=== PATIENT | male | born 1960 | race African-American/Black ===

== ENCOUNTER 2022-03-13 08:17 | Outpatient (RCR) | payer OTHER, SELFPAY ==
--- NOTE | ~2022-03-13 | XR_ITS ---
EXAMINATION: XR CHEST CLINICAL INFORMATION: HBO, prescreen COMPARISON: CT abdomen 11/08/2021 (RAYUS). TECHNIQUE: 2 views of the chest were obtained. FINDINGS: The lungs are clear. There is no hyperinflation, airspace consolidation, groundglass opacity, or fibrotic changes. The costophrenic sulci are clear. The heart is normal in size. The hilar and mediastinal contours are unremarkable. No significant bony abnormality. There is smooth benign ossification anterior spinal ligament lower thoracic spine. XR/XR chest 2V IMPRESSION: Unremarkable examination.
[2022-03-13 10:06] LABS: MANUAL DIFF FLAG NO
[2022-03-13 10:21] LABS: Basophils Percent Auto 0.4 % (0-2); Eosinophils Absolute Auto 0.2 X10*3/uL (0.0-0.4); Eosinophils Percent Auto 3.6 % (0-4); Hematocrit 35.5 % (42.0-52.0); Hemoglobin 10.8 g/dl (14.0-18.0); Imm Gran Abs Auto 0.02 X10*3/uL (0.00-0.03); Imm Gran Pct Auto 0.4 % (0.0-0.4); Lymphocytes Absolute Auto 1.1 X10*3/uL (1.2-4.9); Lymphocytes Percent Auto 20.9 % (20-40); Mean Corpuscular HGB Conc 30.4 g/dl (31.0-36.0); Mean Corpuscular Hemoglobin 26.5 pg (27.0-33.0); Mean Corpuscular Volume 87.2 fL (80.0-98.0); Monocytes Absolute Auto 0.5 X10*3/uL (0.1-1.2); Monocytes Percent Auto 10.1 % (2-11); Neutrophils Absolute Auto 3.5 x10*3/uL (2.0-8.3); Neutrophils Percent Auto 64.6 % (45-73); Platelet Count 212 X10*3/uL (160-400); Red Blood Count 4.07 X10*6/uL (4.60-5.80); Red Cell Distribution Width 15.3 % (11.0-16.0); White Blood Count 5.4 X10*3/uL (4.8-10.8)
[2022-03-13 10:55] LABS: Erythrocyte Sedimentation Rate 5 MM/HR (0-15)
[2022-03-13 10:58] LABS: Estimated Average Glucose 77 mg/dL; Hemoglobin A1C 65.6396 umol/L; Hemoglobin A1c % 4.3 %
[2022-03-13 11:43] LABS: Anion Gap 10 (12-20); Blood Urea Nitrogen 24 mg/dL (9-16); C Reactive Protein < 0.10 mg/dL (< or = 0.50); Carbon Dioxide 26 mmol/L (22-29); Chloride 110 mmol/L (96-108); Estimated Glomerular Filt Rate > 60; Glucose Random 99 mg/dL (60-115); Potassium 4.9 mmol/L (3.3-5.1); Sodium 141 mmol/L (135-145)
[2022-04-07 11:18] LABS: MANUAL DIFF FLAG NO
[2022-04-07 12:12] LABS: Basophils Percent Auto 0.6 % (0-2); Eosinophils Absolute Auto 0.2 X10*3/uL (0.0-0.4); Eosinophils Percent Auto 3.6 % (0-4); Hematocrit 37.6 % (42.0-52.0); Hemoglobin 11.7 g/dl (14.0-18.0); Imm Gran Abs Auto 0.07 X10*3/uL (0.00-0.03); Imm Gran Pct Auto 1.3 % (0.0-0.4); Lymphocytes Absolute Auto 1.1 X10*3/uL (1.2-4.9); Lymphocytes Percent Auto 21.3 % (20-40); Mean Corpuscular HGB Conc 31.1 g/dl (31.0-36.0); Mean Corpuscular Hemoglobin 25.7 pg (27.0-33.0); Mean Corpuscular Volume 82.5 fL (80.0-98.0); Monocytes Absolute Auto 0.5 X10*3/uL (0.1-1.2); Monocytes Percent Auto 9.2 % (2-11); Neutrophils Absolute Auto 3.4 x10*3/uL (2.0-8.3); Red Blood Count 4.56 X10*6/uL (4.60-5.80); Red Cell Distribution Width 15.6 % (11.0-16.0); White Blood Count 5.3 X10*3/uL (4.8-10.8)
[2022-04-07 12:34] LABS: Platelet Count 135 X10*3/uL (160-400)
[2022-04-07 12:36] LABS: Alanine Aminotransferase 38 U/L (0-40); Albumin Level 4.1 g/dL (3.5-5.0); Alkaline Phosphatase 83 U/L (39-117); Anion Gap 13 (12-20); Aspartate Amino Transferase 32 U/L (5-37); Bilirubin Total 0.5 mg/dL (0.0-1.0); Blood Urea Nitrogen 16 mg/dL (9-16); C Reactive Protein < 0.10 mg/dL (< or = 0.50); Calcium 9.2 mg/dL (8.4-10.2); Carbon Dioxide 25 mmol/L (22-29); Chloride 111 mmol/L (96-108); Estimated Glomerular Filt Rate > 60; Glucose Random 94 mg/dL (60-115); Potassium 4.8 mmol/L (3.3-5.1); Sodium 144 mmol/L (135-145); Total Protein 6.5 g/dL (6.5-8.0)
[2022-04-07 13:05] LABS: Erythrocyte Sedimentation Rate 4 MM/HR (0-15)
== END 2022-05-05 16:00 | disposition home or self-care (01) ==
LOC: HO.WCC 08:17
PROVIDERS: Physician Assistant; Visit Provider Surgery
DX: N30.41 Irradiation cystitis with hematuria (principal); C61 Malignant neoplasm of prostate; I10 Essential (primary) hypertension
CPT/HCPCS: 36415; 71046; 80048; 80053; 83036; 84134; 85025; 85652; 86140; 99183; 99212; 99214

== ENCOUNTER 2024-06-03 08:32 | Outpatient (AMB) | payer OTHER, SELFPAY ==
--- NOTE | 2024-06-03 08:35 | MHC.OFFVIS ---
Vital Signs 06/03/24 08:36 Height 5 ft 4 in Weight 192 lb 10.944 oz BMI 33.1 BP 142/58 H Blood Pressure Location Rt brachial Position Sitting Pulse 72 Pulse Source Pulse Oximeter Pulse Oximetry (%) 97 Oxygen Delivery Method Room Air Intake Visit Reasons: Epigastric pain Intake Note: NEW PATIENT for epigastric pain eval and possible colo screening. Chief Complaint; C/O epigastric pain without any additional sx per pt. Pt states that the pain is typically only present at night. No improvement with PPI to this point. No prior hx of similar issues. Last colo via [facility] x3 years ago. Technical Delivery Manager Required: No Accompanied by: Self / Same As Patient Allergies shellfish derived Allergy (Severe, Verified 06/03/24 08:36) Anaphylaxis HPI HPI Epigastric pain: Details: 63-year-old male with past medical history of hypertension, hyperlipidemia, BPH status post TURP, CAD status post cardiac stent at proximal and mid LAD is here today for initial consultation. Patient has been complaining of epigastric pain that sometimes radiates to his back. Patient was started on pantoprazole 20 mg twice a day by his PCP. Patient follows up at [place] [facility] with Dr. Briscoe, who recently left and he sees another visual stylist. Patient has an appointment with him in near future. Appointment with his PCP next week. Patient reports that his symptoms started about 2 weeks ago. Patient describes epigastric pain almost like a muscle twisting like pain that radiates to his back in the epigastric area. Patient reports that the pain happens only at night time when he is trying to lie down. Throughout the day he reports that he is able to tolerate food no epigastric pain or reflux after meals. His last meal is about 7 or 7:30pm and he goes to bed at 9 or 9:30. [facility] Medical History CAD (coronary artery disease) HLD (hyperlipidemia) HTN (hypertension) Surgical History (Updated 06/03/24 @ 08:40 by JOSELINE Maurer) History of colonoscopy History of prostatectomy History of heart artery stent S/P TURP Family History Father Heart disease Mother Heart disease Family/Other Heart disease Social History Alcohol intake: current Patient Tobacco Use Status: Never used Tobacco Use of substances other than those prescribed or required for medical reasons: No Review of Systems Const Denies weight gain and Denies weight loss ENT Reports no additional complaints, Denies dysphagia and Denies odynophagia Card Reports no additional complaints Resp Reports no additional complaints GI Reports abdominal pain (Epigastric), Denies belching, Denies melena, Reports bloating, Denies change in bowel habits, Denies dysphagia, Denies excessive flatus, Denies dyspepsia, Denies heartburn, Denies diarrhea, Denies loose stools, Denies nausea, Denies odynophagia and Denies vomiting Reports no additional complaints Musc Reports no additional complaints Neuro Reports no additional complaints Psych Reports no additional complaints Endo Reports no additional complaints Physical Exam Const General: healthy appearing and no acute distress Nutritional Appearance: obese Orientation/consciousness: patient oriented x3 Resp Effort & Inspection: normal respiratory effort, able to speak in complete sentences, no tracheal deviation and symmetric chest movement Auscultation: clear to auscultation bilaterally Cardio Rate: regular rate GI Inspection: Yes normal to inspection and No distended Palpation (GI): Soft to palpation, not firm, nontender and No hepatosplenomegaly present Auscultation: normal bowel sounds General: Yes no CVA tenderness Back/Spine/Pelvis Back: no CVA tenderness Skin General skin exam: elasticity normal, turgor normal and dry skin Neuro General: patient oriented x3 Psych Appearance: grossly normal Mental Status: mental status grossly normal Assessment & Plan Assessment & Plan (1) Epigastric pain: Code(s): R10.13 - Epigastric pain (2) Abdominal bloating: Code(s): R14.0 - Abdominal distension (gaseous) Plan Epigastric pain only at night time specially when patient lays down. Will rule out celiac and send patient for upper endoscopy, however in the meantime we will check CMP, lipase and H pylori. Patient denies having any epigastric pain, burning, dyspepsia, dysphagia or odynophagia related to meals. Will send him for upper GI with barium swallow to see if patient does have any reflux, gastritis, hernia. Message sent to surgical schedulers to book procedure for patient. Message sent to Angela RN to call his visual stylist for clearance. Patient will follow-up with us after the procedure and we will call with results of upper GI and blood work. He is agreeable to this plan and verbalizes understanding of instructions. He was given the opportunity to ask questions and all questions answered. Thank you for allowing me to participate in his care Orders: Orders Transglutaminase IgA Today R10.9 - Unspecified abdominal pain Comprehensive Met. Panel Today K21.9 - Gastro-esophageal reflux disease without esophagitis Lipase Today R10.9 - Unspecified abdominal pain H pylori Ag Stool Today K21.9 - Gastro-esophageal reflux disease without esophagitis FL upper GI w Ba Swallow Today K21.9 - Gastro-esophageal reflux disease without esophagitis Medications: New sucralfate 1 g PO BEDTIME 30 tabs 4RF R19.7 - Diarrhea, unspecified esomeprazole magnesium (Nexium) 40 mg PO DAILY 30 caps 2RF K21.9 - Gastro-esophageal reflux disease without esophagitis Coding Level of Care Code New Pt Level 3 (55633) Diagnoses Epigastric pain R10.13 Abdominal bloating R14.0 Time Spent (min) 40 Comment 30 minutes spent with patient and additional 10 minutes spent reviewing his records
[2024-06-03 08:36] VITALS: BP 142/58; PULSE 72; O2SAT 97; BMI 33.1
--- OUTSIDE RECORDS SUMMARY | 2024-06-03 08:59 | XMS_ITS ---
Author Organization [employer] Address [address] [facility] [address] [place] [address] Care Team Providers Care Veterinary Technician Name Role Phone FAYE ABKER Primary Care Provider Allergies Allergen (clinical drug ingredient) Drug/Non Drug Allergy documented on EMR Reaction Allergy Type Onset Date Status Shellfish (FN) Shellfish-derived Products anaphylaxis Drug Allergy Active REASON FOR VISIT 2 week f/u Medications Medication SIG (Take, Route, Frequency, Duration) Notes Start Date End Date Status Carvedilol 6.25 MG 1 tablet with food Orally Twice a day Active Atorvastatin Calcium 80 MG 1 tablet Orally Once a day Active Aspirin 81 MG 1 tablet Orally Once a day Active Brilinta 90 MG 1 tablet Orally Twice a day Not-Taking Lisinopril 20 MG 1 tablet Orally Once a day for 90 days Active guaiFENesin AC 100-10 MG/5ML 10 mL as needed Orally 3 times a day for 7 days 02/02/2023 Not-Taking Benzonatate 100 MG 1 capsule as needed Orally Three times a day for 7 days 01/30/2023 Not-Taking amLODIPine Besylate 5 MG 1 tablet Orally Once a day 2 TABLETS DAILY Active Social History Tobacco Use: Social History Observation Description Date Details (start date - stop date) Never Smoker NA - NA Tobacco Use/Smoking Question Answer Notes Are you a nonsmoker Vital Signs Temperature 96.7 degrees Fahrenheit 11/30/19 24 Oximetry 99 % 11/30/2023 Heart Rate 96 /min 11/30/2023 Blood pressure systolic 128 mm Hg 11/30/19 24 Blood pressure diastolic 72 mm Hg 024 Weight 194.9 lbs 11/30/2023 BMI 33.45 kg/m2 11/30/2023 Height 5'4'' in 11/30/2023 Encounters Encounter Location Date Provider Diagnosis [facility] [address] [facility] [address] [place] [address] 11/30/2023 FAYE BAKER Atherosclerotic hear t disease of [place] coronary artery without angina pectoris I25.10 ; Essential (primary) hypertension I10 ; Mixed hyperlipidemia E78.2 and Impaired fasting glucose R73.01 Assessments Encounter Date Diagnosis (ICD Code) Assessment Notes Treatment Notes Treatment Clinical Notes Section Notes 11/30/2023 Atherosclerotic heart disease of [place] coronary artery without angina pectoris (ICD-10 - I25.10) Mr Pickens is a 63-year-old gentleman with history of BPH s/p TURP, hyperlipidemia and hypertension, CAD s/p cardiac stent replacement at proximal and mid LAD; follows up with cardiology here for follow up on blood pressure. Plan is as follows: CAD. s/p cardiac stent placement at proximal and mid LAD. He is on right medications and he follows up with cardiology Dr. Briscoe at [facility] Hypertension. His blood pressure significantly improved since last visit. Continue Lisinopril 20 MG OD, Amlodipine 5 MG and Carvedilol 6.25 MG daily. Hyperlipidemia. Continue Atorvastatin 80 MG daily. Suggested dietary modifications. Morbid obesity. Advised dietary restrictions and regimental exercise. Goal is to lose 5-6 lbs a month. BPH. s/p TURP. Stable at this point. He follows up with urologist Dr Velarde Impaired fasting glucose. Fasting sugars 102. Dietary restrictions, regimental exercise and weight loss advised. check A1c. Screening blood work before next appointment. General health concerns discussed with patient. Scribe services used to formulate this note under HIPAA compliance and under [place] law mandated for scribe services. Patient aware of service. Verbal consent and written consent taken from the patient. Patient understands and verbalizes understanding of the scribes services and all questions answered regarding scribes services. Patient agrees to use of scribes services. 11/30/2023 Essential (primary) hypertension (ICD-10 - I10) Mr Pickens is a 63-year-old gentleman with history of BPH s/p TURP, hyperlipidemia and hypertension, CAD s/p cardiac stent replacement at proximal and mid LAD; follows up with cardiology here for follow up on blood pressure. Plan is as follows: CAD. s/p cardiac stent placement at proximal and mid LAD. He is on right medications and he follows up with cardiology Dr. Briscoe at [facility] Hypertension. His blood pressure significantly improved since last visit. Continue Lisinopril 20 MG OD, Amlodipine 5 MG and Carvedilol 6.25 MG daily. Hyperlipidemia. Continue Atorvastatin 80 MG daily. Suggested dietary modifications. Morbid obesity. Advised dietary restrictions and regimental exercise. Goal is to lose 5-6 lbs a month. BPH. s/p TURP. Stable at this point. He follows up with urologist Dr Velarde Impaired fasting glucose. Fasting sugars 102. Dietary restrictions, regimental exercise and weight loss advised. check A1c. Screening blood work before next appointment. General health concerns discussed with patient. Scribe services used to formulate this note under HIPAA compliance and under [place] law mandated for scribe services. Patient aware of service. Verbal consent and written consent taken from the patient. Patient understands and verbalizes understanding of the scribes services and all questions answered regarding scribes services. Patient agrees to use of scribes services. 11/30/2023 Mixed hyperlipidemia (ICD-10 - E78.2) Mr Pickens is a 63-year-old gentleman with history of BPH s/p TURP, hyperlipidemia and hypertension, CAD s/p cardiac stent replacement at proximal and mid LAD; follows up with cardiology here for follow up on blood pressure. Plan is as follows: CAD. s/p cardiac stent placement at proximal and mid LAD. He is on right medications and he follows up with cardiology Dr. Briscoe at [facility] Hypertension. His blood pressure significantly improved since last visit. Continue Lisinopril 20 MG OD, Amlodipine 5 MG and Carvedilol 6.25 MG daily. Hyperlipidemia. Continue Atorvastatin 80 MG daily. Suggested dietary modifications. Morbid obesity. Advised dietary restrictions and regimental exercise. Goal is to lose 5-6 lbs a month. BPH. s/p TURP. Stable at this point. He follows up with urologist Dr Velarde Impaired fasting glucose. Fasting sugars 102. Dietary restrictions, regimental exercise and weight loss advised. check A1c. Screening blood work before next appointment. General health concerns discussed with patient. Scribe services used to formulate this note under HIPAA compliance and under [place] law mandated for scribe services. Patient aware of service. Verbal consent and written consent taken from the patient. Patient understands and verbalizes understanding of the scribes services and all questions answered regarding scribes services. Patient agrees to use of scribes services. 11/30/2023 Impaired fasting glucose (ICD-10 - R73.01) Mr Pickens is a 63-year-old gentleman with history of BPH s/p TURP, hyperlipidemia and hypertension, CAD s/p cardiac stent replacement at proximal and mid LAD; follows up with cardiology here for follow up on blood pressure. Plan is as follows: CAD. s/p cardiac stent placement at proximal and mid LAD. He is on right medications and he follows up with cardiology Dr. Briscoe at [facility] Hypertension. His blood pressure significantly improved since last visit. Continue Lisinopril 20 MG OD, Amlodipine 5 MG and Carvedilol 6.25 MG daily. Hyperlipidemia. Continue Atorvastatin 80 MG daily. Suggested dietary modifications. Morbid obesity. Advised dietary restrictions and regimental exercise. Goal is to lose 5-6 lbs a month. BPH. s/p TURP. Stable at this point. He follows up with urologist Dr Velarde Impaired fasting glucose. Fasting sugars 102. Dietary restrictions, regimental exercise and weight loss advised. check A1c. Screening blood work before next appointment. General health concerns discussed with patient. Scribe services used to formulate this note under HIPAA compliance and under [place] law mandated for scribe services. Patient aware of service. Verbal consent and written consent taken from the patient. Patient understands and verbalizes understanding of the scribes services and all questions answered regarding scribes services. Patient agrees to use of scribes services. Plan Of Treatment Future Test Test Name Order Date Hemoglobin [id number] 11/30/2023 Albumin/Creatinine Ratio,Urine-[id number] Lipid Panel-[id number] 11/30/2023 Comp. Metabolic Panel ([id number] 2023 Next Appt Details Follow Up: 6 Months- ADRIENNELouanna son: Provider Name:Kami griffin, 06/08/2024 01:15:00 PM, [address] [facility] [address], [place], [address], Progress Notes * Jam PICKENSOB: 9 (63 yo M)Acc No.[id number]:11/30/2023 Progress Notes Patient:Dm CORTES Provider:?FAYE BAKER MD :1960???Age:63 Y???Sex:Male Mathew e:11/30/2023 Address: [address], [facility] Subjective: * Chief Complaints: * ???2 week f/u * HPI: ???Internal Medicine:? Mr Pickens is a 63-year-old gentleman with history of BPH s/p TURP, hyperlipidemia and hypertension, CAD s/p cardiac stent replacement at proximal and mid LAD; follows up with cardiology here for follow up on blood pressure. His blood pressure significantly improved since last time. He is physically active. His weight is stable. He sleeps well, appetite is good. No GI or symptoms. He does not appear anxious or depressed. He denies any other active issues or concerns. * ROS:?General/Constitutional:?Overall health?Good.?Change in appetite?denies.?Chills?denies.?Fever?denies.?Night sweats?denies.?Sleep disturbance?denies.?Weight gain?denies.?Weight loss?denies.?Neurologic:?Difficulty speaking?denies.?Dizziness?denies.?Gait abnormality?denies.?Headache?denies.?Loss of strength?denies.?Memory loss?denies.?Seizures?denies.?Tingling/Numbness?denies ?.?Ophthalmologic:?Blurred vision?denies.?Discharge?denies.?Dry eye?denies.?Red eye?denies.?ENT:?Change in Voice?Denies.?Cold Symptoms?Denies.?Cough?Denies.?Dizziness?Denies.?Nasal Congestion?Denies.?Otalgia?Denies.?postnasal drip?Denies.?Blocked ear?denies.?Nosebleed?denies.?Snoring?denies.?Cardiovascular:?Diaphoresis?Denies.?Pedal Edema?Denies.?PND (Paroxsymal nocturnal dyspnea)?Denies.?Chest pain?denies.?Difficulty laying flat?denies.?Dyspnea on exertion?denies.?Heart murmur?denies.?Orthopnea?denies.?Respiratory:?Snoring?denies.?Asthma?denies.?Cough?denies.?Shortness of breath with exertion?denies.?Sputum production?denies.?Wheezing?denies.?Gastrointestinal:?Change in bowel habits?denies.?Constipation?denies.?Decreased appetite?denies.?Diarrhea?denies.?Heartburn?denies.?Nausea?denies.?Vomiting?chance es.?Musculoskeletal:?tingling/numbness?Denies.?myalgias?Denies.?Joint Swelling?Denies.?extremeties?normal.?Arthritis?denies.?Back problems?denies.?Carpal tunnel?denies.?Joint stiffness?denies.?Muscle aches?denies.?Endocrine:?Bowel Changes?Denies.?Breast Discharge?Denies.?poor libido?Denies.?Cold intolerance?denies.?Excessive sweating?denies.?Excessive thirst?denies.?Frequent urination?denies.?Thyroid problems?denies.?Skin:?Bruising?Denies.?Eczema?denies.?Hair changes?denies.?Rash?denies.?Skin lesion(s)?denies.?Psychiatric:?Anxiety?denies.?Depressed mood?denies.?Difficulty sleeping?denies.?Nervous breakdown?denies.?Substance abuse?denies.?Urology:?abnormal menstrual bleeding?denies.?blood in urine?denies.?burning on urination?denies.?difficulty urinating?denies.?discharge?denies.?dysuria?denies.? * Medical History:? * Surgical History:?TURP cardi ac stent placement, proximal and mid LAD prostatectomy by Dr Velarde f/u radiation * Hospitalization/Major Diagno stic Procedure:?Denies Past Hospitalization * Family History:?Father: dece ased, diagnosed with Heart Disease.?Mother: , diagnosed with Diabetes.?Siblings: diagnosed with Heart Disease.? * Social History:?Tobacco Use:?Tobacco Use/Smoking?Are you a?nonsmoker ???Drugs/Alcohol:?Do you drink alcohol?: yes?.?Miscellaneous:?Exercise: occasionally. ?Marital status: . ?Occupation: Works full-time, factory work. * Medications:?TakingamLODIPin e Besylate 5 MG Tablet 1 tablet Orally Once a day , Notes to Pharmacist: 2 TABLETS DAILYCarvedilol 6.25 MG Tablet 1 tablet with food Orally Twice a day Aspirin 81 MG Tablet Delayed Release 1 tablet Orally Once a day Atorvastatin Calcium 80 MG Tablet 1 tablet Orally Once a day Lisinopril 20 MG Tablet 1 tablet Orally Once a day Taking amLODIPine Besylate 5 MG Tablet 1 tablet Orally Once a day , Notes to Pharmacist: 2 TABLETS DAILYTaking Carvedilol 6.25 MG Tablet 1 tablet with food Orally Twice a day Taking Aspirin 81 MG Tablet Delayed Release 1 tablet Orally Once a day Taking Atorvastatin Calcium 80 MG Tablet 1 tablet Orally Once a day Taking Lisinopril 20 MG Tablet 1 tablet Orally Once a day Not-TakingBrilinta 90 MG Tablet 1 tablet Orally Twice a day Benzonatate 100 MG Capsule 1 capsule as needed Orally Three times a day guaiFENesin AC 100-10 MG/5ML Syrup 10 mL as needed Orally 3 times a day Medication List reviewed and reconciled with the patientNot-Taking Brilinta 90 MG Tablet 1 tablet Orally Twice a day Not-Taking Benzonatate 100 MG Capsule 1 capsule as needed Orally Three times a day Not-Taking guaiFENesin AC 100-10 MG/5ML Syrup 10 mL as needed Orally 3 times a day Medication List reviewed and reconciled with the patient * Allergies:?Shellfish-derived Products: anaphylaxis - Allergyno[Allergies Verified] Objective: * Vitals:?Temp:96.7F, Oxygen s at %:99%, HR:96/min, BP:128/72mm Hg, Wt:194.9lbs, BMI:33.45Index, Ht: 5'4''. * ???Past Orders: ???Lab:COMPREHENSIVE METABOL IC PANEL (Order Date - 03/13/2023) (Collection Date & Time - 03/13/2023 09:48 AM) ? Value Reference Range ?ALBUMIN 4.2 (3.4-4.8) - GM/DL ?ALK PHOS 127 (40-129) - U/L ?BILIRUBIN,TOTAL 0.3 (0-1 .2) - MG/DL ?CALCIUM 9.0 (8.6-10.5) - MG/DL ?BICARBONATE 27 (22-29) - MMOL/L ?CHLORIDE 110 H (98-107) - MMOL/L ?EST GFR NON 95 - ML/MIN/1.73 M2 ?CREATININE 0.9 (0.7-1.2) - MG/DL ?ANION GAP 7 (4-17) - ?GLUCOSE 102 H (70-99) - MG /DL ?AST 25 (0-40) - U/L ?ALT 31 (0-41) - U/L ?POTASSIUM 5.0 (3.6-5.2) - MMOL/L ?SODIUM 144 (133-145) - M MOL/L ?TOTAL PROTEIN 6.8 (6.2-8 .2) - GM/DL ?BUN 15 (8-23) - MG/DL ?AG RATIO 1.6 - ???Lab:HEMOGLOBIN A1C WITH E ST GLUCOSE (Order Date - 03/13/2023) (Collection Date & Time - 03/13/2023 09:48 AM) ? Value Reference Range ?HEMOGLOBIN A1C 5.6 (4.0- 5.6) - % ?ESTIMATE AVERAGE GLUCOSE 114 - MG/DL ???Lab:LIPID PANEL (Order Da te - 03/13/2023) (Collection Date & Time - 03/13/2023 09:48 AM) ? Value Reference Range ?LDL CHOLESTEROL, CALCULATED 51 (0-130) - MG/DL ?CHOLESTEROL, TOTAL 109 ( <200) - MG/DL ?HDL CHOL 41 (>39) - MG/ DL ?NON HDL CHOLESTEROL (CALC) 68 (<160) - MG/DL ?TRIGLYCERIDE 84 (<150) - MG/DL ???Lab:MICROALBUMIN, URINE ( Order Date - 03/13/2023) (Collection Date & Time - 03/13/2023 09:48 AM) ? Value Reference Range ?MICRO-ALBUMIN 78.0 H (<20) - MG/L ?MALB/CREAT RATIO 53.8 H (0- 20) - MG/GM ?URINE CREAT FOR MICRO ALBUMIN 144.2 - MG/DL * Examination: ???General Examination: ?Psychiatry?Normal.?GENERAL APPEARANCE:?Well developed, well nourished, in no acute distress.?MUSCULOSKELETAL:?Normal.?HEAD:?Normocephalic, atraumatic.?EYES:?Pupils equal, round, reactive to light and accommodation, sclera non-icteric.?EARS:?Normal.?ORAL CAVITY:?Normal.?THROAT:?Clear.?OROPHARYNX?Normal.?SINUSES?Normal.?NECK/THYROID:?Neck supple, full range of motion, no cervical lymphadenopathy.?SKIN:?Warm and dry, no suspicious lesions.?HEART:?Normal.?LUNGS:?Normal.?BREASTS:?__.?ABDOMEN:?Soft, nontender, nondistended, bowel sounds present, normal.?EXTREMITIES:?Normal.?PERIPHERAL PULSES:?Normal.?NEUROLOGIC:?Nonfocal,? appropriate?motor strength normal upper and lower extremities, sensory exam intact.?FEMALE GENITOURINARY:?__.?MALE GENITOURINARY:?circumcised, no hernia, no hydrocele, no penile lesions or discharge, no testicular mass.?PODIATRIC:?Normal.?Binder Cutter? .? Assessment: * Assessment: 1.?Atherosclerotic heart dis ease of [place] coronary artery without angina pectoris - I25.10 (Primary)?2.?Essential (primary) hypertension - I10?3.?Mixed hyperlipidemia - E78.2?4.?Impaired fasting glucose - R73.01? Mr Pickens is a 63-year-old gentleman with history of BPH s/p TURP, hyperlipidemia and hypertension, CAD s/p cardiac stent replacement at proximal and mid LAD; follows up with cardiology here for follow up on blood pressure. Plan is as follows: CAD. s/p cardiac stent placement at proximal and mid LAD. He is on right medications and he follows up with cardiology Dr. Briscoe at [facility] Hypertension. His blood pressure significantly improved since last visit. Continue Lisinopril 20 MG OD, Amlodipine 5 MG and Carvedilol 6.25 MG daily. Hyperlipidemia. Continue Atorvastatin 80 MG daily. Suggested dietary modifications. Morbid obesity. Advised dietary restrictions and regimental exercise. Goal is to lose 5-6 lbs a month. BPH. s/p TURP. Stable at this point. He follows up with urologist Dr Velarde Impaired fasting glucose. Fasting sugars 102. Dietary restrictions, regimental exercise and weight loss advised. check A1c. Screening blood work before next appointment. General health concerns discussed with patient. Scribe services used to formulate this note under HIPAA compliance and under [place] law mandated for scribe services. Patient aware of service. Verbal consent and written consent taken from the patient. Patient understands and verbalizes understanding of the scribes services and all questions answered regarding scribes services. Patient agrees to use of scribes services. Plan: * Treatment: 2.?Impaired fasting glucose?LAB: Hemoglobin [id number] (Ordered for 11/30/2023) * Procedure Codes:?3078F DIAST BP < 80 MM [id number] SYST BP LT 130 MM HG * Follow Up:?6 Months- AW * Images: * Sign off status: Completed true * Provider:?FAYE BAKER MD Date:?11/29 Generated for Phillip renteria/Mark/Michelleitting on:?06/03/2024 08:59 AM EDT History and Physical Notes * HPI (History of Present Illness) Category Sub-Category Detail Notes Category Not es Internal Medicine Mr Pickens is a 63-year-old gentleman with history of BPH s/p TURP, hyperlipidemia and hypertension, CAD s/p cardiac stent replacement at proximal and mid LAD; follows up with cardiology here for follow up on blood pressure. His blood pressure significantly improved since last time. He is physically active. His weight is stable. He sleeps well, appetite is good. No GI or symptoms. He does not appear anxious or depressed. He denies any other active issues or concerns. Examination Category Sub-Category Detail Notes Category Not es General Examination GENERAL APPEARANCE: Well dev eloped, well nourished, in no acute distress HEAD: Normocephalic, atrau matic EYES: Pupils equal, round, reactive to light and accommodation, sclera non-icteric EARS: Normal THROAT: Clear NECK/THYROID: Neck supple, full ra nge of motion, no cervical lymphadenopathy HEART: Normal LUNGS: Normal ABDOMEN: Soft, nontender, non distended, bowel sounds present, normal NEUROLOGIC: Nonfocal, appropriat e motor strength normal upper and lower extremities, sensory exam intact SKIN: Warm and dry, no chinyere picious lesions EXTREMITIES: Normal PERIPHERAL PULSES: Normal BREASTS: __ MUSCULOSKELETAL: Normal MALE GENITOURINARY: circumcised, no turner ia, no hydrocele, no penile lesions or discharge, no testicular mass FEMALE GENITOURINARY: __ ORAL CAVITY: Normal PODIATRIC: Normal Psychiatry Normal OROPHARYNX Normal SINUSES Normal Binder Cutter
--- OUTSIDE RECORDS SUMMARY | 2024-06-03 08:59 | XMS_ITS ---
Author Organization [facility] Address [address] [place] [address] Care Team Providers Care Skein Winder Name Role Phone OLIVIA FAYE Primary Care Provider REASON FOR VISIT Lisinopril rx Medications Medication SIG (Take, Route, Fr equency, Duration) Notes Start Date End Date Status Lisinopril 20 MG 1 tablet Orally Once a day for 90 days Active Encounters Encounter Location Date Provider Diagnosis [address] [address] 11/17/2023 FAYE BAKER Plan Of Treatment Medication Medication Name Sig Start Date Stop Date Notes Lisinopril 20 MG 1 tablet Orally Once a day for 90 days Next Appt Details Provider Name:Kami grfifin, 06/08/2024 01:15:00 PM, [address] [place] [address], [place], [address], Progress Notes * Lewis PICKENSeDOB: (63 yo M)Acc No.[id number]:11/17/2023 Patient:?Lewis PICKENSe :1960???Age:63 Y???Sex:Male Address:[address] [place] [address] * Refills? Refill Lisinopril Tablet, 20 MG, Orally, 90, 1 tablet, Once a day, 90 days, Refills=3 * true * Date:? Generated for Phillip renteria/Mark/Tom on:?06/03/2024 08:59 AM EDT
--- OUTSIDE RECORDS SUMMARY | 2024-06-03 09:00 | XMS_ITS | Clinical Summary ---
Author Organization [employer] Address [address] [place] [address] Care Team Providers Care Youth Services Librarian Name Role Phone Sayra Pappas NP Primary Care Provider [phone] Panfilo Velarde MD Unavailable Allergies Active Allergy Reactions Criticality Noted Date Comments Shellfish Derived 03/04/2019 Medications ibuprofen (ADVIL) 200 mg tablet Take by mouth every 6 (six) hours if needed for mild pain Active acetaminophen (TYLENOL) 500 mg tablet Take 500 mg by mouth every 6 (six) hours if needed for mild pain Active amLODIPine (NORVASC) 5 mg tabletIndication s:Hypertension, unspecified type Take 1 tablet (5 mg total) by mouth 1 (one) time each day 90 tablet 3 08/05/2022 Active lisinopriL (PRINIVIL) 5 mg tabletIndication s:Hypertension, unspecified type Take 1 tablet (5 mg total) by mouth 1 (one) time each day 90 tablet 3 08/05/2022 Active rosuvastatin (CRESTOR) 5 mg tabletIndication s:Dyslipidemia Take 1 tablet (5 mg total) by mouth 1 (one) time each day 90 tablet 3 08/05/2022 Active Active Problems Problem Noted Date Diagnosed Date Disorder of bladder 02/18/2022 Overview (02/18/2022): Followed by urology: bladder detrusor instability, bladder hyperactivity, bladder outlet obstruction, bladder sphincter spasm, cystitis radiation- chronic; gross hematuria, hx of malignant bladder neoplasm, prostate cancer 02/18/2022: chronic radiation cystitis: referred to hyperbaric oxygen therapy; oxybutynin 5 mg tid; pyridium Gross hematuria 12/23/2021 Overview (03/19/2022): Followed by urology 12/20/2021: cytology, urine culture, plan cysto 01/01/2022: concern for UTI- started on bactrim x 5 days; TURBT scheduled for further evaluation of gross hematuria 01/09/2022: TURBT done 01/08/2022, results pending 02/06/2022: cyst/clot evac and fulguration on 02/[address] Velarde, whitfield removed, f/u 02/18/2022 03/13/2022: pursue hyperbaric oxygen therapy for radiation cystitis Arthritis of right knee 07/23/2021 Overview (07/23/2021): 07/18/2021 R knee xray: mild enthesopathy and mild osteoarthrosis BPH (benign prostatic hyperplasia) 07/05/2021 Dyslipidemia 07/05/2021 Proteinuria 12/26/2020 Overweight 12/26/2020 Hypertension 12/12/2020 Impaired fasting glucose 11/28/2020 Prostate cancer 01/02/2020 Overview (01/21/2022): Follow[facility] by [facility] Urology TURP: 04/17/2016, radiation therapy and course of ADT 10/24/2021: episode of gross hematuria- w/u urine C&S, cytology, CT urogram, cystoscopy- pt requesting to hold off on the cystoscopy 12/2021: TURBT pathology: fragments of papillary urothelial cell carcinoma, low grade, recommend 2nd look TURBT to confirm diagnosis of bladder cancer and remove as much as possible Onychomycosis of great toe 03/09/2019 Resolved Problems Problem Noted Date Diagnosed Date Resolved Date Foot pain, bilateral 11/28/2020 022 Sebaceous cyst 03/09/2019 07/05/2021 Seborrheic keratoses 03/09/2019 022 Sciatica of left side 03/09/20192019 Immunizations Name Administration Dates Next Due COVID-19 Pfizer SARS-CoV2 mR NA PF 30mcg/0.3mL Vaccine (Purple) 02/15/2021,07/20/2020,06/22/2020 Tdap 09/19/2016 Family History Medical History Relation Comments Asthma Brother Hypertension Brother Heart disease Father Heart disease Mother Cancer Other Hypertension Sister Relation Status Comments Brother Alive Father Mother Other Sister Alive Social History Tobacco Use Types Packs/Day Years Used Date Smoking Tobacco: Never Smokeless Tobacco: Never Tobacco Cessation:Counseling Given: Not Answered Alcohol Use Standard Drinks/Week Comments Yes 2 (1 standard drink = 0.6 oz pur e alcohol) AUDIT-C Answer Date Recorded Frequency of Alcohol Consumption Monthly or less 04/20/2019 Average Number of Drinks Not on file 020 Frequency of Binge Drinking Not on file 04/02 PHQ-2 Answer Date Recorded Depression Risk (PHQ2) Score 0 11/2022 Sex and Gender Information Value Date Recorded Sex Assigned at Not on file Legal Sex Male 8:15 AM MST Gender Identity Not on file Sexual Orientation Not on file Last Filed Vital Signs Vital Sign Reading Time Taken Comments Blood Pressure 140/80 07/09/2022 8:48 AM EDT Pulse 62 07/09/2022 7:56 AM EDT Temperature 36.3 ??C (97.3 ??F) 07/09/2022 7:56 AM ED T Respiratory Rate 16 04/20/2019 8:55 AM EST Oxygen Saturation 99% 07/09/2022 7:56 AM EDT Inhaled Oxygen Concentration - - Weight 85.5 kg (188 lb 9.6 oz) 07/09/2022 7:56 A M EDT Height 165.2 cm (5' 5.04 ) 07/05/2021 8:54 AM ED T Body Mass Index 31.35 07/05/2021 8:54 AM EDT Plan of Treatment Health Maintenance Due Date Last Done Comments CT Colonography 1958 Cologuard 1958 FOBT/FIT 1958 Sigmoidoscopy 1958 PHQ-9 Depression Screen 1970 SANDRA-7 Anxiety Screen 1976 Pneumococcal Vaccine: 50+ Ye ars (1 of 2 - PCV) 1977 Zoster Vaccines (1 of 2) 1977 Annual Preventive Exam 07/10/2023 3, 07/05/2021, 11/28/2020, Additional history exists COVID-19 Vaccine (4 - 2023-2 5 season) 2023 02/15/2021, 07/20/2020, 06/22/2020 Influenza Vaccine (#1) 2023 Colonoscopy 06/21/2026 06/21/2021 (Prev iously completed - report reviewed), 01/27/2017, 01/27/2017 Colorectal Cancer Screening 06/21/2026 DTaP,Tdap,and Td Vaccines (2 - Td or Tdap) 09/19/2026 09/19/2016 RSV Vaccine (SCDM) (1 - 1-do se 75+ series) 2033 Hepatitis C Screening Completed 01/17/2021 Procedures Procedure Name Priority Date/Time Associated Diagnosis Comments HEPATITIS PANEL, ACUTE Routine 01/17/2021 9:40 AM EST Elevated liver enzymes from Last 3 Months or Most Recently Relevant to Health Maintenance Results * Hepatitis panel, acute (01/17/2021 9:40 AM EST) Hep A Ab, IgM Negative Negative [facility] HBsAg Screen Negative Negative [facility] Hep B Core Ab, IgM Negative Negative [facility] Hep C Virus Ab <0.1 0.0 - 0.9 s/co ratio [facility] Comment: ?Negative: ? < 0.8 ? Indeterminate: 0.8 - 0.9 ?Positive: ? > 0.9 The CDC recommends that a positive HCV antibody result be followed up with a HCV Nucleic Acid Amplification test ([id number]). Blood (Blood, Venous) 01/17/2021 9:40 AM EST 01/17/2021 Comment:Blood, Venous Narrative [facility] - 01/18/2021 8:17 AM EST Performed at: ??01 - [facility] [address] ??[id number] Quantitative Developer: Becki Nagel MD, Phone: ??[phone] us Jessica Hamilton [employer] LAB BLOOD ORDERABLES Final Res ult [facility] from Last 3 Months or Most Recently Relevant to Health Maintenance Insurance [employer] Care Teams Youth Services Librarian Relationship Specialty Start Date End Date Sayra Pappas NP [address] [place] [id number] PCP - General Family Medicine 07/05/21 Panfilo Velarde MD [address] [address] Consulting Physician Urology 07/05/21
--- OUTSIDE RECORDS SUMMARY | 2024-06-03 09:00 | XMS_ITS | Patient Health Record ---
Author Organization [facility] Address [address] [facility] [address] [place] [address] Care Team Providers Care Automatic Head Sawyer Name Role Phone FAYE BAKER Primary Care Provider [phone] Allergies Allergen (clinical drug ingredient) Drug/Non Drug Allergy documented on EMR Reaction Allergy Type Onset Date Status Shellfish (FN) Shellfish-derived Products anaphylaxis Drug Allergy Active Reason For Referral Reason epigastric pain Pl ease evaluate and treat Diagnosis 1 Epigastric pain (R10 .13) Referral Organization [facility] Referring Provider First Name FAYE Referring Provider Last Name OLIVIA Referring Provider Speciality Internal M edicine Referred Provider Specialty Gastroentero logy General Notes Please call the [facility]doulaye ent to schedule the appointment. Referral Priority Urgent Medications Medication SIG (Take, Route, Frequency, Duration) Notes Start Date End Date Status Brilinta 90 MG 1 tablet Orally Twice a day Not-Taking Pantoprazole Sodium 20 MG 1 tablet Orally 2 times a day for 30 days 05/20/2024 Active Atorvastatin Calcium 80 MG TAKE 1 TABLET BY MOUTH EVERY DAY for 30 Active Carvedilol 6.25 MG TAKE 1 TABLET BY MOUTH TWO TIMES A DAY for 30 Active Lisinopril 20 MG 1 tablet Orally Once a day for 90 days Active guaiFENesin AC 100-10 MG/5ML 10 mL as needed Orally 3 times a day for 7 days 02/02/2023 Not-Taking Benzonatate 100 MG 1 capsule as needed Orally Three times a day for 7 days 01/30/2023 Not-Taking Aspirin 81 MG 1 tablet Orally Once a day Active amLODIPine Besylate 5 MG 1 tablet Orally Once a day 2 TABLETS DAILY Active Immunizations Vaccine Route Administration Date Status Comme nts COVID 19 Pfizer Unknown 06/22/2020 Administered COVID 19 Pfizer Unknown 07/20/2020 Administered COVID 19 Pfizer Unknown 02/15/2021 Administered Tdap Unknown 05/15/2008 Administered Tdap Unknown 09/19/2016 Administered Social History Tobacco Use: Social History Observation Description Date Details (start date - stop date) Never Smoker NA - NA Tobacco Use/Smoking Question Answer Notes Are you a nonsmoker Problems Problem Type SNOMED Code ICD Code Onset Dates Problem Status W/U Status Risk Notes Problem Morbid obesity (disorder) (553688050) Morbid (severe) obesity due to excess calories (E66.01) Active confirmed Problem Mixed hyperlipidemia (137709461) Mixed hyperlipidemia (E78.2) Active confirmed Problem Atherosclerotic heart disease of tangirnaq coronary artery without angina pectoris (645456225793027) Atherosclerotic heart disease of tangirnaq coronary artery without angina pectoris (I25.10) Active confirmed Problem History of malignant neoplasm of prostate (208873952) Personal history of malignant neoplasm of prostate (Z85.46) Active confirmed Problem Essential hypertension (97415828) Essential (primary) hypertension (I10) Active confirmed Problem Body mass index 30.00 to 34.99 (099089643322385) Body mass index [BMI] 33.0-33.9, adult (Z68.33) Active confirmed Vital Signs Heart Rate 76 /min 05/20/2024 Temperature 96.4 degrees Fahrenheit 05/20/2024 Blood pressure diastolic 78 mm Hg 05/20/2024 Oximetry 98 % 05/20/2024 Height 5'4'' in 05/20/2024 Blood pressure systolic 130 mm Hg 05/20/2024 Weight 202.4 lbs 05/20/2024 BMI 34.74 kg/m2 05/20/2024 Encounters Encounter Location Date Provider Diagnosis [address] [place] [address] 11/05/2023 MCKINNEYANISA BAKER [facility] [address] [facility] [address] [place] [address] 11/16/2023 FAYE BAKER Atherosclerotic hear t disease of tangirnaq coronary artery without angina pectoris I25.10 ; Essential (primary) hypertension I10 and Mixed hyperlipidemia E78.2 [facility] [address] [facility] [address] [place] [address] 11/30/2023 MCKINNEY GUStefany Atherosclerotic hear t disease of tangirnaq coronary artery without angina pectoris I25.10 ; Essential (primary) hypertension I10 ; Mixed hyperlipidemia E78.2 and Impaired fasting glucose R73.01 [facility] [address] [facility] [address] [place] [address] 05/20/2024 MCKINNEY GUL Epigastric pain R10. 13 ; Atherosclerotic heart disease of tangirnaq coronary artery without angina pectoris I25.10 ; Essential (primary) hypertension I10 ; Mixed hyperlipidemia E78.2 and Impaired fasting glucose R73.01 [facility] [address] [facility] [address] [place] [address] 11/17/2023 MCKINNEY OLIVIA Assessments Encounter Date Diagnosis (ICD Code) Assessment Notes Treatment Notes Treatment Clinical Notes Section Notes 11/16/2023 Atherosclerotic heart disease of tangirnaq coronary artery without angina pectoris (ICD-10 - I25.10) Mr Pickens is a 63-year-old gentleman with history of BPH s/p TURP, hyperlipidemia and hypertension, CAD s/p cardiac stent replacement at proximal and mid LAD; follows up with cardiology here for follow up. Plan is as follows: CAD. s/p cardiac stent placement at proximal and mid LAD. He is on right medications and he follows up with cardiology Dr. Briscoe at [facility] Hypertension. His blood pressure is running high in the office today. Cut back on sodium intake. Advised appropriate hydration, cardio exercises and weight loss. Increase Lisinopril to 20 MG OD. Continue Amlodipine 5 MG and Carvedilol 6.25 MG daily. Hyperlipidemia. Continue Atorvastatin 80 MG daily. Suggested dietary modifications. Impaired fasting glucose. Fasting sugars 102. Dietary restrictions, regimental exercise and weight loss advised. Morbid obesity. Advised dietary restrictions and regimental exercise. Goal is to lose 5-6 lbs a month. BPH. s/p TURP. Stable at this point. He follows up with urologist Dr Velarde Screening blood work before next appointment. General health concerns discussed with patient. Scribe services used to formulate this note under HIPAA compliance and under [place] law mandated for scribe services. Patient aware of service. Verbal consent and written consent taken from the patient. Patient understands and verbalizes understanding of the scribes services and all questions answered regarding scribes services. Patient agrees to use of scribes services. 11/30/2023 Atherosclerotic heart disease of tangirnaq coronary artery without angina pectoris (ICD-10 - [...] follows up with cardiology Dr. Briscoe at [facility] Hypertension. His blood pressure significantly improved since [...] this note under HIPAA compliance and under [place] law mandated for scribe services. Patient aware [...] follows up with cardiology Dr. Briscoe at [facility] Hypertension. His blood pressure significantly improved since [...] this note under HIPAA compliance and under [place] law mandated for scribe services. Patient aware of service. Verbal consent and written consent taken from the patient. Patient understands and verbalizes understanding of the scribes services and all questions answered regarding scribes services. Patient agrees to use of scribes services. 05/20/2024 Atherosclerotic heart disease of tangirnaq coronary artery without angina pectoris (ICD-10 - I25.10) Mr Pickens is a 63-year-old gentleman with history of BPH s/p TURP, hyperlipidemia and hypertension, CAD s/p cardiac stent replacement at proximal and mid LAD; follows up with cardiology here for epigastric pain Plan is as follows: Epigastric pain. Differential diagnosis is gastritis/esophag itis, GERD. Started on Protonix 20 mg 1 tablet twice a day and diet restriction discussed. Is also given referral to GI for upper endoscopy. CAD. s/p cardiac stent placement at proximal and mid LAD. He is on right medications and he follows up with cardiology Dr. Briscoe at [facility] Hypertension. His blood pressure significantly [...] exercise and weight loss advised. check A1c. General health concerns discussed with patient. 05/20/2024 Epigastric pain (ICD-10 - R10.13) Mr Pickens is a 63-year-old gentleman with history of BPH s/p TURP, hyperlipidemia and hypertension, CAD s/p cardiac stent replacement at proximal and mid LAD; follows up with cardiology here for epigastric pain Plan is as follows: Epigastric pain. Differential diagnosis is gastritis/esophag itis, GERD. Started on Protonix 20 mg 1 tablet twice a day and diet restriction discussed. Is also given referral to GI for upper endoscopy. CAD. s/p cardiac stent placement at proximal and mid LAD. He is on right medications and he follows up with cardiology Dr. Briscoe at [facility] Hypertension. His blood pressure significantly [...] exercise and weight loss advised. check A1c. General health concerns discussed with patient. 05/20/2024 Essential (primary) hypertension (ICD-10 - I10) Mr Pickens is a 63-year-old gentleman with history of BPH s/p TURP, hyperlipidemia and hypertension, CAD s/p cardiac stent replacement at proximal and mid LAD; follows up with cardiology here for epigastric pain Plan is as follows: Epigastric pain. Differential diagnosis is gastritis/esophag itis, GERD. Started on Protonix 20 mg 1 tablet twice a day and diet restriction discussed. Is also given referral to GI for upper endoscopy. CAD. s/p cardiac stent placement at proximal and mid LAD. He is on right medications and he follows up with cardiology Dr. Briscoe at [facility] Hypertension. His blood pressure significantly [...] exercise and weight loss advised. check A1c. General health concerns discussed with patient. 05/20/2024 Mixed hyperlipidemia (ICD-10 - E78.2) Mr Pickens is a 63-year-old gentleman with history of BPH s/p TURP, hyperlipidemia and hypertension, CAD s/p cardiac stent replacement at proximal and mid LAD; follows up with cardiology here for epigastric pain Plan is as follows: Epigastric pain. Differential diagnosis is gastritis/esophag itis, GERD. Started on Protonix 20 mg 1 tablet twice a day and diet restriction discussed. Is also given referral to GI for upper endoscopy. CAD. s/p cardiac stent placement at proximal and mid LAD. He is on right medications and he follows up with cardiology Dr. Briscoe at [facility] Hypertension. His blood pressure significantly [...] exercise and weight loss advised. check A1c. General health concerns discussed with patient. 11/16/2023 Essential (primary) hypertension (ICD-10 - I10) Mr Pickens is a 63-year-old gentleman with history of BPH s/p TURP, hyperlipidemia and hypertension, CAD s/p cardiac stent replacement at proximal and mid LAD; follows up with cardiology here for follow up. Plan is as follows: CAD. s/p cardiac stent placement at proximal and mid LAD. He is on right medications and he follows up with cardiology Dr. Briscoe at [facility] Hypertension. His blood pressure is running high in the office today. Cut back on sodium intake. Advised appropriate hydration, cardio exercises and weight loss. Increase Lisinopril to 20 MG OD. Continue Amlodipine 5 MG and Carvedilol 6.25 MG daily. Hyperlipidemia. Continue Atorvastatin 80 MG daily. Suggested dietary modifications. Impaired fasting glucose. Fasting sugars 102. Dietary restrictions, regimental exercise and weight loss advised. Morbid obesity. Advised dietary restrictions and regimental exercise. Goal is to lose 5-6 lbs a month. BPH. s/p TURP. Stable at this point. He follows up with urologist Dr Velarde Screening blood work before next appointment. General health concerns discussed with patient. Scribe services used to formulate this note under HIPAA compliance and under [place] law mandated for scribe services. Patient aware [...] follows up with cardiology Dr. Briscoe at [facility] Hypertension. His blood pressure significantly [...] this note under HIPAA compliance and under [place] law mandated for scribe services. Patient aware of service. Verbal consent and written consent taken from the patient. Patient understands and verbalizes understanding of the scribes services and all questions answered regarding scribes services. Patient agrees to use of scribes services. 11/16/2023 Mixed hyperlipidemia (ICD-10 - E78.2) Mr Pickens is a 63-year-old gentleman with history of BPH s/p TURP, hyperlipidemia and hypertension, CAD s/p cardiac stent replacement at proximal and mid LAD; follows up with cardiology here for follow up. Plan is as follows: CAD. s/p cardiac stent placement at proximal and mid LAD. He is on right medications and he follows up with cardiology Dr. Briscoe at [facility] Hypertension. His blood pressure is running high in the office today. Cut back on sodium intake. Advised appropriate hydration, cardio exercises and weight loss. Increase Lisinopril to 20 MG OD. Continue Amlodipine 5 MG and Carvedilol 6.25 MG daily. Hyperlipidemia. Continue Atorvastatin 80 MG daily. Suggested dietary modifications. Impaired fasting glucose. Fasting sugars 102. Dietary restrictions, regimental exercise and weight loss advised. Morbid obesity. Advised dietary restrictions and regimental exercise. Goal is to lose 5-6 lbs a month. BPH. s/p TURP. Stable at this point. He follows up with urologist Dr Velarde Screening blood work before next appointment. General health concerns discussed with patient. Scribe services used to formulate this note under HIPAA compliance and under [place] law mandated for scribe services. Patient aware [...] follows up with cardiology Dr. Briscoe at [facility] Hypertension. His blood pressure significantly [...] this note under HIPAA compliance and under [place] law mandated for scribe services. Patient aware of service. Verbal consent and written consent taken from the patient. Patient understands and verbalizes understanding of the scribes services and all questions answered regarding scribes services. Patient agrees to use of scribes services. 05/20/2024 Impaired fasting glucose (ICD-10 - R73.01) Mr Pickens is a 63-year-old gentleman with history of BPH s/p TURP, hyperlipidemia and hypertension, CAD s/p cardiac stent replacement at proximal and mid LAD; follows up with cardiology here for epigastric pain Plan is as follows: Epigastric pain. Differential diagnosis is gastritis/esophag itis, GERD. Started on Protonix 20 mg 1 tablet twice a day and diet restriction discussed. Is also given referral to GI for upper endoscopy. CAD. s/p cardiac stent placement at proximal and mid LAD. He is on right medications and he follows up with cardiology Dr. Briscoe at [facility] Hypertension. His blood pressure significantly [...] exercise and weight loss advised. check A1c. General health concerns discussed with patient. Plan Of Treatment Future Test Test Name Order Date COMPREHENSIVE METABOLIC PANEL 01/30/2023 HEMOGLOBIN A1C WITH EST GLUCOSE 01/31/20 23 LIPID PANEL 01/30/2023 MICROALBUMIN, URINE 01/30/2023 Albumin/Creatinine Ratio,[id number] Lipid [id number] 11/16/2023 Comp. Metabolic Panel [id number] 2023 Hemoglobin [id number] 11/30/2023 Albumin/Creatinine Ratio,Urine-[id number] Lipid Panel-[id number] 11/30/2023 Comp. Metabolic Panel [id number] 2023 Next Appt Details Provider Name:Kami griffin, 06/08/2024 01:15:00 PM, [address] [place] [address], [place], [address], Insurance Providers Payer Name Payer Address Payer Phone Subscriber Number Group Number Insured Name Patient Relationship to Insured Coverage Start Date Coverage End Date [employer]ox[place] [address] [place] [phone] [id number] Dm Pickens Self - patient is the insured 1 Medical (General) History Medical History History ICD Code hypertension hyperlipidemia CAD s/p cardiac stent replac ement at proximal and mid LAD, follows up with Cardiology Surgical History Surgery Date(Month/Year) TURP cardiac stent placement, proximal and mi d LAD prostatectomy by Dr Velarde f/u radiation
--- OUTSIDE RECORDS SUMMARY | 2024-06-03 09:00 | XMS_ITS ---
Author Organization [facility] Address [address] [place] [address] Care Team Providers Care Reading Intervention Teacher Name Role Phone FAYE BAKER Primary Care Provider Allergies Allergen (clinical drug ingredient) Drug/Non Drug Allergy documented on EMR Reaction Allergy Type Onset Date Status Shellfish (FN) Shellfish-derived Products anaphylaxis Drug Allergy Active Reason For Referral Reason epigastric pain Pl ease evaluate and treat Diagnosis 1 Epigastric pain (R10 .13) Referral Organization [facility] Referring Provider First Name FAYE Referring Provider Last Name OLIVIA Referring Provider Speciality Internal M edicine Referred Provider Specialty Gastroentero logy General Notes Please call the [facility] ent to schedule the appointment. Referral Priority Urgent REASON FOR VISIT back spasms Medications Medication SIG (Take, Route, Frequency, Duration) Notes Start Date End Date Status Brilinta 90 MG 1 tablet Orally Twice a day Not-Taking Pantoprazole Sodium 20 MG 1 tablet Orally 2 times a day for 30 days 05/20/2024 Active Atorvastatin Calcium 80 MG TAKE 1 TABLET BY MOUTH EVERY DAY for 30 Active guaiFENesin AC 100-10 MG/5ML 10 mL as needed Orally 3 times a day for 7 days 02/02/2023 Not-Taking Benzonatate 100 MG 1 capsule as needed Orally Three times a day for 7 days 01/30/2023 Not-Taking Carvedilol 6.25 MG TAKE 1 TABLET BY MOUTH TWO TIMES A DAY for 30 Active Lisinopril 20 MG 1 tablet Orally Once a day for 90 days Active Aspirin 81 MG 1 tablet Orally Once a day Active amLODIPine Besylate 5 MG 1 tablet Orally Once a day 2 TABLETS DAILY Active Vital Signs Temperature 96.4 degrees Fahrenheit 05/21/19 25 Oximetry 98 % 05/20/2024 Heart Rate 76 /min 05/20/2024 Blood pressure systolic 130 mm Hg 05/21/19 25 Blood pressure diastolic 78 mm Hg 025 Weight 202.4 lbs 05/20/2024 BMI 34.74 kg/m2 05/20/2024 Height 5'4'' in 05/20/2024 Encounters Encounter Location Date Provider Diagnosis [facility] [address] [place] [address] 05/20/2024 MCKINNEY GUL Epigastric pain R10. 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 Briscoe at [facility]. His blood pressure significantly improved [...] General health concerns discussed with patient. 05/20/2024 Atherosclerotic heart disease of north[place] coronary artery without angina pectoris (ICD-10 - [...] follows up with cardiology Dr. Briscoe at [facility] Hypert[facility]. His blood pressure significantly improved since [...] follows up with cardiology Dr. Briscoe at [facility] Hypertension. His blood pressure significantly improved since [...] follows up with cardiology Dr. Briscoe at [facility]. His blood pressure significantly improved [...] General health concerns discussed with patient. 05/20/2024 Impaired fasting glucose (ICD-10 - R73.01) [...] follows up with cardiology Dr. Briscoe at [facility]. His blood pressure significantly improved [...] concerns discussed with patient. Plan Of Treatment Medication Medication Name Sig Start Date Stop Date Notes Pantoprazole Sodium 20 MG 1 tablet Orall y 2 times a day for 30 days 05/20/2024 Referrals Referral Date Details 05/20/2024 05/20/2024, epigastr ic pain Please evaluate and treat Next Appt Details Follow Up: next appt, Reason : Provider Name:Kami griffin, 06/08/2024 01:15:00 PM, [address] [place] [address], [phone], Progress Notes * Lewis PICKENSeDOB: (63 yo M)Acc No.[id number]:05/20/2024 Patient:?Dm PICKENS Provider:?FAYE BAKER MD :1960???Age:63 Y???Sex:Male Mathew e:05/20/2024 Address: [address], [id number] Subjective: * Chief Complaints: * ???Back spasms * HPI: ???Internal Medicine:?Mr Pickens is a 63-year-old gentleman with history of BPH s/p TURP, hyperlipidemia and hypertension, CAD s/p cardiac stent replacement at proximal and mid LAD; follows up with cardiology here for epigastric pain which radiates to the back.? Couple days ago it was intense pain and he had back spasm.? He is not on NSAIDs.? He has one cup of coffee which is 2 times a week.? He denies melena or hematochezia.,? No nausea or vomiting.? His weight is stable. * ROS:?General/Constitutional:?Overall health?Good.?Change in appetite?denies.?Chills?denies.?Fever?denies.?Night sweats?denies.?Sleep disturbance?denies.?Weight gain?denies.?Weight loss?denies.?Neurologic:?Difficulty speaking?denies.?Dizziness?denies.?Gait abnormality?denies.?Headache?denies.?Loss of strength?denies.?Memory loss?denies.?Seizures?denies.?Tingling/Numbness?denies .?Ophthalmologic:?Blurred vision?denies.?Discharge?denies.?Dry eye?denies.?Red eye?denies.?ENT:?Change in Voice?Denies.?Cold Symptoms?Denies.?Cough?Denies.?Dizziness?Denies.?Nasal Congestion?Denies.?Otalgia?Denies.?postnasal drip?Denies.?Blocked ear?denies.?Nosebleed?denies.?Snoring?denies.?Cardiovascular:?Diaphoresis?Denies.?Pedal Edema?Denies.?PND (Paroxsymal nocturnal dyspnea)?Denies.?Chest pain?denies.?Difficulty laying flat?denies.?Dyspnea on exertion?denies.?Heart murmur?denies.?Orthopnea?denies.?Respiratory:?Snoring?denies.?Asthma?denies.?Cough?denies.?Shortness of breath with exertion?denies.?Sputum production?denies.?Wheezing?denies.?Gastrointestinal:?Abdominal pain?epigastric.?Change in bowel habits?denies.?Constipation?denies.?Decreased appetite?denies.?Diarrhea?denies.?Heartburn?denies.?Nausea?denies.?Vomiting?chance es.?Musculoskeletal:?tingling/numbness?Denies.?myalgias?Denies.?Joint Swelling?Denies.?extremeties?normal.?Arthritis?denies.?Back problems?denies.?Carpal tunnel?denies.?Joint stiffness?denies.?Muscle aches?denies.?Endocrine:?Bowel Changes?Denies.?Breast Discharge?Denies.?poor libido?Denies.?Cold intolerance?denies.?Excessive sweating?denies.?Excessive thirst?denies.?Frequent urination?denies.?Thyroid problems?denies.?Skin:?Bruising?Denies.?Eczema?denies.?Hair changes?denies.?Rash?denies.?Skin lesion(s)?denies.?Psychiatric:?Anxiety?denies.?Depressed mood?denies.?Difficulty sleeping?denies.?Nervous breakdown?denies.?Substance abuse?denies.?Urology:?abnormal menstrual bleeding?denies.?blood in urine?denies.?burning on urination?denies.?difficulty urinating?denies.?discharge?denies.?dysuria?denies.? * Medical History:? * Medications:?TakingamLODIPin e Besylate 5 MG Tablet 1 tablet Orally Once a day , Notes to Pharmacist: 2 TABLETS DAILYAspirin 81 MG Tablet Delayed Release 1 tablet Orally Once a day Lisinopril 20 MG Tablet 1 tablet Orally Once a day Carvedilol 6.25 MG Tablet TAKE 1 TABLET BY MOUTH TWO TIMES A DAY Atorvastatin Calcium 80 MG Tablet TAKE 1 TABLET BY MOUTH EVERY DAY Taking amLODIPine Besylate 5 MG Tablet 1 tablet Orally Once a day , Notes to Pharmacist: 2 TABLETS DAILYTaking Aspirin 81 MG Tablet Delayed Release 1 tablet Orally Once a day Taking Lisinopril 20 MG Tablet 1 tablet Orally Once a day Taking Carvedilol 6.25 MG Tablet TAKE 1 TABLET BY MOUTH TWO TIMES A DAY Taking Atorvastatin Calcium 80 MG Tablet TAKE 1 TABLET BY MOUTH EVERY DAY Not-TakingBrilinta 90 MG Tablet 1 tablet Orally [...] Products: anaphylaxis - Allergyno[Allergies Verified] Objective: * Vitals:?Temp:96.4F, Oxygen s at %:98%, HR:76/min, BP:130/78mm Hg, Wt:202.4lbs, BMI:34.74Index, Ht: 5'4''. * Examination: ???General Examination: ?Psychiatry?Normal.?GENERAL APPEARANCE:?Well developed, well nourished, in no acute distress.?MUSCULOSKELETAL:?Normal.?HEAD:?Normocephalic, atraumatic.?EYES:?Pupils equal, round, reactive to light and accommodation, sclera non-icteric.?EARS:?Normal.?ORAL CAVITY:?Normal.?THROAT:?Clear.?OROPHARYNX?Normal.?SINUSES?Normal.?NECK/THYROID:?Neck supple, full range of motion, no cervical lymphadenopathy.?SKIN:?Warm and dry, no suspicious lesions.?HEART:?S1, S2 normal regular rate and rhythm no murmurs, rubs, gallops .?LUNGS:?clear anteriorly and posteriorly good air movement no wheezes, rales, rhonchi .?BREASTS:?__.?ABDOMEN:?Soft, nontender, nondistended, bowel sounds present,pain on palpation in the epigastric area, Higgins sign negative.?EXTREMITIES:?Normal.?PERIPHERAL PULSES:?Normal.?NEUROLOGIC:?Nonfocal,? appropriate?motor strength normal upper and lower extremities, sensory exam intact.?FEMALE GENITOURINARY:?__.?MALE GENITOURINARY:?circumcised, no hernia, no hydrocele, no penile lesions or discharge, no testicular mass.?PODIATRIC:?Normal.?Chemistry Quality Control Analyst? .? Assessment: * Assessment: 1.?Atherosclerotic heart dis ease of [place] coronary artery without angina pectoris - I25.10 (Primary)???2.?Epigastric pain - R10.13 (Primary)???3.?Essential (primary) hypertension - I10???4.?Mixed hyperlipidemia - E78.2?? 5.?Impaired fasting glucose - R73.01??? Mr Pickens is a 63-year-old gentleman with history of BPH s/p TURP, hyperlipidemia and hypertension, CAD s/p cardiac stent replacement at proximal and mid LAD; follows up with cardiology here for epigastric pain Plan is as follows: Epigastric pain.? Differential diagnosis is gastritis/esophagitis, GERD.? Started on Protonix 20 mg 1 tablet twice a day and diet restriction discussed.? Is also given referral to GI for upper endoscopy. CAD. s/p cardiac stent placement at proximal and mid LAD. He is on right medications and he follows up with cardiology Dr. Briscoe at [facility]. His blood pressure significantly improved [...] A1c. General health concerns discussed with patient. Plan: * Treatment: 2.?Others? Referral To:Gastroenterology ?Reason:epigastric pain * Procedure Codes:?3078F DIAST BP < 80 MM [id number] SYST BP GE 130 - 139MM HG * Follow Up:?next appt * Images: * Sign off status: Completed true * Provider:KALPANA BAKER MD Date:?05/20 Generated for Printi ng/Christianneg/eTransmitting on:?06/03/2024 08:59 AM EDT History and Physical Notes * HPI (History of Present Illness) Category Sub-Category Detail Notes Category Not es Internal Medicine Mr Pickens is a 63-year-old gentleman with history of BPH s/p TURP, hyperlipidemia and hypertension, CAD s/p cardiac stent replacement at proximal and mid LAD; follows up with cardiology here for epigastric pain which radiates to the back. Couple days ago it was intense pain and he had back spasm. He is not on NSAIDs. He has one cup of coffee which is 2 times a week. He denies melena or hematochezia., No nausea or vomiting. His weight is stable. Examination Category Sub-Category Detail Notes Category Not es General Examination GENERAL APPEARANCE: Well dev eloped, well nourished, in no acute distress HEAD: Normocephalic, atrau matic EYES: Pupils equal, round, reactive to light and accommodation, sclera non-icteric EARS: Normal THROAT: Clear NECK/THYROID: Neck supple, full ra nge of motion, no cervical lymphadenopathy HEART: S1, S2 normal regula r rate and rhythm no murmurs, rubs, gallops LUNGS: clear anteriorly and posteriorly good air movement no wheezes, rales, rhonchi ABDOMEN: Soft, nontender, non distended, bowel sounds present, pain on palpation in the epigastric area, Higgins sign negative NEUROLOGIC: Nonfocal, appropriat e motor strength normal upper and lower extremities, sensory exam intact SKIN: Warm and dry, no chinyere picious lesions EXTREMITIES: Normal PERIPHERAL PULSES: Normal BREASTS: __ MUSCULOSKELETAL: Normal MALE GENITOURINARY: circumcised, no turner ia, no hydrocele, no penile lesions or discharge, no testicular mass FEMALE GENITOURINARY: __ ORAL CAVITY: Normal PODIATRIC: Normal Psychiatry Normal OROPHARYNX Normal SINUSES Normal Chemistry Quality Control Analyst Consultation Request Notes Referral Date Referring Provider Referred Provider Not es 05/20/2024 FAYE BAKER , epigastric byron n Please evaluate and treat
--- OUTSIDE RECORDS SUMMARY | 2024-06-03 09:00 | XMS_ITS | Encounter Summary ---
Author Organization [employer] Address [address] [place] [address] Care Team Providers Care Paving Machine Operator Name Role Phone Sayra Pappas LEGAL CONSULTANT Primary Care Provider [phone]- [phone] Panfilo Velarde MD Unavailable Reason for Visit * Reason Comments Med Refill Encounter Details Date Type Department Care Team (Late st Contact Info) Description 01/31/2022 Refill [facility] [address] [place] [address] Sayra Pappas NP [address] [place] [id number] Dyslipidemia Social History Tobacco Use Types Packs/Day Years Used Date Smoking Tobacco: Never Smokeless Tobacco: Never Alcohol Use Standard Drinks/Week Comments Yes 2 (1 standard drink = 0.6 oz pur e alcohol) AUDIT-C Answer Date Recorded Frequency of Alcohol Consumption Monthly or less 04/20/2019 Average Number of Drinks Not on file 020 Frequency of Binge Drinking Not on file 04/02 PHQ-2 Answer Date Recorded Depression Risk (PHQ2) Score 0 07/2021 Sex and Gender Information Value Date Recorded Sex Assigned at Not on file Legal Sex Male 8:15 AM [facility] Gender Identity Not on file Sexual Orientation Not on file documented as of this encounter Plan of Treatment Not on file documented as of this encounter Visit Diagnoses Diagnosis Dyslipidemia Other and unspecified hyperlipidemia documented in this encounter Care Teams Paving Machine Operator Relationship Specialty Start Date End Date Sayra Pappas NP [address] [place] [id number] PCP - General Family Medicine 07/05/21 Panfilo Velarde MD [address] [facility] Sh[facility] [address] [place] [address] Consulting Physician Urology 07/05/21 documented as of this encounter
== END 2024-06-03 09:13 | disposition home or self-care (01) ==
LOC: HO.HGI 08:33
PROVIDERS: PCP Hospitalist; Visit Provider Nurse Practitioner Family
DX: R10.13 Epigastric pain (principal); R14.0 Abdominal distension (gaseous)
CPT/HCPCS: 99203

== ENCOUNTER 2024-06-03 08:32 | Outpatient (REF) | payer OTHER, SELFPAY ==
--- OUTSIDE RECORDS SUMMARY | 2024-06-03 09:56 | XMS_ITS | Encounter Summary ---
Author Organization [employer] Address [address] [place] [address] Care Team Providers Care Leather Production Artisan Name Role Phone Sayra Pappas INVENTORY MANAGER Primary Care Provider +1- [phone] Panfilo Velarde MD Unavailable Reason for Visit * Reason Comments Med Refill Encounter Details Date Type Department Care Team (Late st Contact Info) Description 01/31/2022 Refill [facility] [address] [place] [address] Sayra Pappas NP [address] [place] [phone] Dyslipidemia Social History Tobacco Use Types Packs/Day [...] on file Legal Sex Male 8:15 AM [facility] Gender Identity Not on file Sexual Orientation Not on file documented as of this encounter Plan of Treatment Not on file documented as of this encounter Visit Diagnoses Diagnosis Dyslipidemia Other and unspecified hyperlipidemia documented in this encounter Care Teams Leather Production Artisan Relationship Specialty Start Date End Date Sayra Pappas NP [address] [place] [id number] PCP - General Family Medicine 07/05/21 Panfilo Velarde MD 100 [facility] Sh[facility] [address] [place] [address] Consulting Physician Urology 07/05/21 documented as of this encounter
--- OUTSIDE RECORDS SUMMARY | 2024-06-03 09:56 | XMS_ITS | Clinical Summary ---
Author Organization [employer] Address [address] [place] [address] Care Team Providers Care Delivery Analyst Name Role Phone Sayra Pappas NP Primary Care Provider +1- [phone] Panfilo Velarde MD Unavailable Allergies Active Allergy [...] Prostate cancer 01/02/2020 Overview (01/21/2022): Followed by [facility] TURP: 04/17/2016, radiation therapy [...] with a HCV Nucleic Acid Amplification test ([id number]). Blood (Blood, Venous) 01/17/2021 9:40 AM EST 01/17/2021 Comment:Blood, Venous Narrative [facility] - 01/18/2021 8:17 AM EST Performed at: ??01 - [facility] [address] ??[id number] Worm Picker: Becki Nagel MD, Phone: ??[phone] us Jessica Hamilton SUPERVISOR LOADING LAB BLOOD ORDERABLES Final Res ult [facility] from Last 3 Months or Most Recently Relevant to Health Maintenance Insurance [employer] Care Teams Delivery Analyst Relationship Specialty Start Date End Date Sayra Pappas NP [address] [place] [id number] PCP - General Family Medicine 07/05/21 Panfilo Velarde MD [address] [address] Consulting Physician Urology 07/05/21
[2024-06-03 11:18] LABS: Estimated Average Glucose 114 mg/dL; Hemoglobin A1C 137.8296 umol/L; Hemoglobin A1c % 5.6 % (<6.0); Total Hemoglobin (HGBA1C) 3636.5723 umol/L
[2024-06-03 11:49] LABS: Creatinine Urine 147.78 mg/dL; Microalbum/Creatinine Ratio Ur 120.4 ug/mg cr (<30)
[2024-06-03 12:19] LABS: Alanine Aminotransferase 32 U/L (0-40); Albumin Level 4.2 g/dL (3.5-5.0); Alkaline Phosphatase 818 U/L (39-117); Anion Gap 12 (12-20); Aspartate Amino Transferase 55 U/L (5-37); Bilirubin Total 0.6 mg/dL (0.0-1.0); Blood Urea Nitrogen 15 mg/dL (9-16); Calcium 8.5 mg/dL (8.4-10.2); Carbon Dioxide 25 mmol/L (22-29); Chloride 112 mmol/L (96-108); Estimated Glomerular Filt Rate > 60; Glucose Random 103 mg/dL (60-115); Lipase 12 U/L (8-78); Potassium 5.1 mmol/L (3.3-5.1); Sodium 144 mmol/L (135-145); Total Protein 7.3 g/dL (6.5-8.0)
[2024-06-03 13:03] LABS: Cholesterol 94 mg/dL (<200); Triglycerides 67 mg/dL (<150)
[2024-06-03 14:05] LABS: HDL Cholesterol 34 mg/dL (>40); LDL Cholesterol Calculated 47 mg/dL (<100)
[2024-06-07 13:09] LABS: Transglutaminase IgA <1.0 U/mL
== END 2024-06-03 08:33 | disposition home or self-care (01) ==
LOC: HO.LAB 08:32
PROVIDERS: PCP Hospitalist; Visit Provider Nurse Practitioner Family
DX: I10 Essential (primary) hypertension (principal); R73.01 Impaired fasting glucose; R10.9 Unspecified abdominal pain; K21.9 Gastro-esophageal reflux disease without esophagitis
CPT/HCPCS: 36415; 80053; 80061; 82043; 82570; 83036; 83690; 86364